=== PATIENT | female | born 1980 | race Caucasian/White ===

== ENCOUNTER → 2018-11-03 | Outpatient (CLI) | payer OTHER ==
--- NOTE | 2018-11-03 17:00 | PCVCIMAG ---
APPROVED REPORT Study performed: 11/03/2018 13:29:39 EXAM: Comprehensive 2D, Doppler, and color-flow Echocardiogram Patient Location: Echo lab Status: routine BSA: 1.48 HR: 93 bpmBP: 122/80 mmHg Rhythm: NSR Other Information Study Quality: Technically Difficult Indications Tachycardia 2D Dimensions IVSd: 6.40 (7-11mm)LVOT Diam: 17.28 (18-24mm) LVDd: 37.44 mm PWd: 5.78 (7-11mm)Ascending Ao: 27.26 (22-36mm) LVDs: 29.43 (25-40mm) Left Atrium: 26.23 (27-40mm) Aortic Root: 22.09 mm LV Single Plane 4CH: 47.07 % LV Single Plane 2CH: 47.87 % Biplane EF: 47.2 % Volumes Left Atrial Volume (Systole) Single Plane 4CH: 17.15 mLSingle Plane 2CH: 14.80 mL LA ESV Index: 30.00 mL/m2 Aortic Valve AoV Peak Nelson.: 1.20 m/s AO Peak Gr.: 5.72 mmHgLVOT Max P.14 mmHg LVOT Max V: 0.89 m/s ISAURA Vmax: 1.74 cm2 TDI Medial E' Nelson.: 0.11 m/s Lateral E' Nelson.: 0.14 m/s Pulmonary Vein P Vein S: 0.50 m/sP Vein A: 0.38 m/s P Vein D: 0.34 m/sP Vein A Dur.: 86.5 msec P Vein S/D Ratio: 1.47 Tricuspid Valve TR Peak Nelson.: 2.10 m/s TR Peak Gr.: 17.72 mmHg Left Ventricle The left ventricle is normal size. There is normal LV segmental wall motion. There is normal left ventricular wall thickness. Left ventricular systolic function is normal. The left ventricular ejection fraction is within the normal range. 60% Right Ventricle The right ventricle is normal size. The right ventricular systolic function is normal. Atria The left atrium size is normal. The right atrium size is normal. Aortic Valve The aortic valve is not well visualized. No aortic regurgitation is present. There is no aortic valvular stenosis. Mitral Valve The mitral valve is normal in structure. Trace mitral regurgitation. No evidence of mitral valve stenosis. Tricuspid Valve The tricuspid valve is normal in structure. There is no tricuspid valve regurgitation noted. Pulmonic Valve The pulmonary valve is normal in structure. There is no pulmonic valvular regurgitation. Great Vessels The aortic root is normal in size. IVC is normal in size and collapses >50% with inspiration. Pericardium There is no pericardial effusion. <Conclusion> The left ventricle is normal size. 60% The right ventricle is normal size. The left atrium size is normal. No aortic regurgitation is present. Trace mitral regurgitation. There is no tricuspid valve regurgitation noted. The aortic root is normal in size. There is no pericardial effusion.
--- NOTE | 2018-11-08 16:55 | PCVCIMAG ---
APPROVED REPORT Patient Location: Echo lab Room #: Stress Nurse: Tarah Hernandez RN Treadmill strest test: The patient exercised according to the JOSE for 11:21 mins:, achieving a work level of Max. METS:13.40. The resting heart rate of 88 bpm mey to a maximal heart rate of 164 bpm. This value represents 89% of the maximal, age predicted heart rate. The resting blood pressure of 122/80 mmHg, mey to a maximum blood pressure of 142/80mmHg. The exercise test was stopped due to fatigue, dyspnea. Conclusion #1 patient subsegment any fatigue shortness of breath no production of chest pain or anginal type symptoms. #2 no diagnostic EKG changes consistent with ischemia no significant ectopy. #3 excellent exercise tolerance was an appropriate hemodynamic response Impression: negative treadmill stress test for ischemia or any sick stress-induced ectopy.
== END | disposition home or self-care (01) ==
LOC: PCVCIMAG 13:20
PROVIDERS: ATTEND Internal Medicine Cardiovascular Disease
DX: R00.0 Tachycardia, unspecified (principal); R00.2 Palpitations; R94.31 Abnormal electrocardiogram [ECG] [EKG]
CPT/HCPCS: 93017; 93306